=== PATIENT | female | born 1940 | race Caucasian/White ===

== ENCOUNTER 2018-02-09 22:22 | Inpatient (IN) | payer OTHER ==
[~2018-02-09] VITALS: Ht 157.5 cm; Wt 80.6 kg
[~2018-02-09 22:22] MED LIST: CARVEDILOL25 MG PO; DIGOX250 MCG PO; HYDROCHLOROTHIA25 MG PO; INVOKANA300 MG PO; JANTOVEN5 MG PO; JANUVIA100 MG PO; SIMVASTATIN40 MG PO
[2018-02-09 23:02] LABS: HEMATOCRIT 43.2 % (36.0-46.0); MCH 31.6 PG (29.0-34.0); MCHC 34.7 G/DL (30.0-36.0); MCV 90.9 FL (83-99); PLATELET COUNT 202 K/uL (156-360); RBC DIS.WIDTH-SD 43.3 % (39-53); RED BLOOD COUNT 4.75 M/uL (3.80-5.20); WHITE BLOOD COUNT 17.7 K/uL (4.1-10.2)
[2018-02-09 23:11] LABS: PTT 50.1 SEC (25-37)
[2018-02-09 23:17] LABS: CHLORIDE 105 mEq/L (99-109); POTASSIUM 3.8 mEq/L (3.7-5.4); SODIUM 141 mEq/L (136-147)
[2018-02-09 23:19] LABS: GLUCOSE 134 mg/dL (70-99)
[2018-02-09 23:23] LABS: CREATININE 0.8 mg/dL (0.6-1.3); GFR ESTIMATE (CALCULATED) > 59 mL/min/
[2018-02-09 23:24] LABS: UREA NITROGEN (BUN) 13 mg/dL (9-23)
[2018-02-10 05:20] VITALS: BP 131/58
[2018-02-10 06:09] VITALS: BP 131/58
[2018-02-10 08:00] VITALS: BP 138/63
[2018-02-10 08:52] LABS: HEMATOCRIT 39.9 % (36.0-46.0); HEMOGLOBIN 13.6 G/DL (11.9-15.5); MCH 31.1 PG (29.0-34.0); MCHC 34.1 G/DL (30.0-36.0); MCV 91.1 FL (83-99); PLATELET COUNT 195 K/uL (156-360); RBC DIS.WIDTH-CV 13.2 % (11.8-14.6); RBC DIS.WIDTH-SD 43.5 % (39-53); RED BLOOD COUNT 4.38 M/uL (3.80-5.20); WHITE BLOOD COUNT 16.6 K/uL (4.1-10.2)
[2018-02-10] MEDS ORDERED: COUMADIN5 MG PO (09:05)
[2018-02-10] MEDS ORDERED: GLIMEPIRIDE2 MG PO (09:06)
[2018-02-10] MEDS ORDERED: NOVOLOG MI100 UNIT/2 SC (09:07)
[2018-02-10 15:31] VITALS: BP 144/66
[2018-02-10 19:37] VITALS: BP 138/65
[2018-02-11] VITALS (7 sets, daily range): BP systolic 129–176; BP diastolic 59–78
[2018-02-11 06:26] LABS: HEMATOCRIT 40.5 % (36.0-46.0); HEMOGLOBIN 13.7 G/DL (11.9-15.5); MCH 30.8 PG (29.0-34.0); MCHC 33.8 G/DL (30.0-36.0); PLATELET COUNT 185 K/uL (156-360); RBC DIS.WIDTH-SD 43.3 % (39-53); RED BLOOD COUNT 4.45 M/uL (3.80-5.20); WHITE BLOOD COUNT 12.6 K/uL (4.1-10.2)
[2018-02-11 07:00] LABS: C-REACTIVE PROTEIN 45.5 MG/L (0-10); CHLORIDE 104 MEQ/L (99-109); CREATININE 0.7 MG/DL (0.6-1.3); GFR ESTIMATE (CALCULATED) > 59 mL/min/; GLUCOSE 137 mg/dL (70-99); POTASSIUM 3.5 MEQ/L (3.7-5.4); SODIUM 139 MEQ/L (136-147); UREA NITROGEN (BUN) 11 mg/dL (9-23)
[2018-02-11 09:29] LABS: HEMOGLOBIN A1c (GLYCOHEMOGLOB) 7.3 % (Below 5.7)
[2018-02-11 14:08] LABS: INTER. NORMALIZED RATIO 2.1
[2018-02-12 05:34] VITALS: BP 147/64
[2018-02-12 07:32] VITALS: BP 156/70
[2018-02-12 08:00] LABS: HEMATOCRIT 38.7 % (36.0-46.0); HEMOGLOBIN 13.3 G/DL (11.9-15.5); MCH 31.5 PG (29.0-34.0); MCHC 34.4 G/DL (30.0-36.0); MCV 91.7 FL (83-99); PLATELET COUNT 199 K/uL (156-360); RBC DIS.WIDTH-CV 13.2 % (11.8-14.6); RBC DIS.WIDTH-SD 43.6 % (39-53); RED BLOOD COUNT 4.22 M/uL (3.80-5.20); WHITE BLOOD COUNT 15.6 K/uL (4.1-10.2)
[2018-02-12 08:07] LABS: INTER. NORMALIZED RATIO 1.4
[2018-02-12 11:32] VITALS: BP 133/58
[2018-02-12 15:26] VITALS: BP 146/74
[2018-02-12 20:33] VITALS: BP 165/75
[2018-02-13 00:03] VITALS: BP 164/74
[2018-02-13 04:07] VITALS: BP 165/75
[2018-02-13 05:52] LABS: BASOPHIL (%) 0.9 % (0-1); BASOPHIL COUNT 0.2 K/uL (0-0.1); EOSINOPHIL (%) 3.5 % (0-5); EOSINOPHIL COUNT 0.6 K/uL (0-0.3); HEMATOCRIT 41.2 % (36.0-46.0); IMMATURE GRANULOCYTE (%) 0.6 % (0.0-0.7); LYMPHOCYTE (%) 14.8 % (15-42); LYMPHOCYTE COUNT 2.4 K/uL (1.0-2.8); MCH 31.4 PG (29.0-34.0); MCV 92.4 FL (83-99); MONOCYTE (%) 7.7 % (3-12); MONOCYTE COUNT 1.2 K/uL (0-0.8); NEUTROPHIL (%) 72.5 % (45-76); NEUTROPHIL COUNT 11.6 K/uL (1.8-6.4); PLATELET COUNT 211 K/uL (156-360); RBC DIS.WIDTH-CV 13.2 % (11.8-14.6); RED BLOOD COUNT 4.46 M/uL (3.80-5.20); WHITE BLOOD COUNT 15.9 K/uL (4.1-10.2)
[2018-02-13 08:26] VITALS: BP 168/82
[2018-02-13] MEDS ORDERED: DOXYCYCLINE HY100 MG PO (09:21)
[2018-02-13] MEDS ORDERED: AUGMENTIN875 MG PO (09:21)
[2018-02-13 09:25] LABS: INTER. NORMALIZED RATIO 1.5
[2018-02-13 12:17] VITALS: BP 154/78
== END 2018-02-13 14:11 | disposition home or self-care (01) | DRG 394 ==
LOC: EME 22:22 → 3EAST 02-10 03:42 → EDOF 02-10 03:42 → ENRESERV 02-10 03:47 → 3EAST 02-10 05:13
PROVIDERS: Emergency Medicine; Hospitalist; Student in an Organized Health Care Education/Training Program
DX: K61.2 Anorectal abscess (principal); L02.31 Cutaneous abscess of buttock; L03.317 Cellulitis of buttock; I48.91 Unspecified atrial fibrillation; M25.552 Pain in left hip; R79.1 Abnormal coagulation profile; I10 Essential (primary) hypertension; E11.9 Type 2 diabetes mellitus without complications; E78.5 Hyperlipidemia, unspecified; I25.10 Atherosclerotic heart disease of native coronary artery without angina pectoris; K04.7 Periapical abscess without sinus; K58.0 Irritable bowel syndrome with diarrhea; E66.9 Obesity, unspecified; Z68.32 Body mass index [BMI] 32.0-32.9, adult; Z91.81 History of falling; Z79.01 Long term (current) use of anticoagulants; Z79.4 Long term (current) use of insulin; Z85.828 Personal history of other malignant neoplasm of skin
CPT/HCPCS: 72193; 73502; 80048; 80202; 82948; 83036; 83605; 85025; 85027; 85610; 85730; 86140; 86850; 86900; 86901; 87040; 99281; 99285; J0696; J1815; J2543; J3370; J7050; S0030